=== PATIENT | male | born 1965 | race Two or more races ===

== ENCOUNTER 2025-03-10 20:36 | Inpatient (IN) | payer OTHER ==
[2025-03-10 21:12] VITALS: BMI 25.4
[2025-03-10] MEDS ORDERED: ONDANSETRON *ODT* 4 MG TABLET SL PRN (22:11)
[2025-03-10] MEDS ORDERED: BENZONATATE 200 MG CAPSULE PO PRN (22:11)
[2025-03-10] MEDS ORDERED: guaiFENesin 600 MG TABLET.ER (FP) PO PRN (22:11)
[2025-03-10] MEDS ORDERED: MAGNESIUM HYDROX 2400MG/30ML ORAL SUSPENSION 30 ML CUP PO PRN (22:11)
[2025-03-10] MEDS ORDERED: NICOTINE POLACRILEX 4 MG GUM BUC PRN (22:11)
[2025-03-10] MEDS ORDERED: NALOXONE (NARCAN) HCL 4 MG/0.1 ML SPRAY NS PRN (22:11)
[2025-03-10] MEDS ORDERED: ACETAMINOPHEN 325 MG TABLET (FP) PO PRN (22:11)
[2025-03-10] MEDS ORDERED: BISMUTH SUBSALICYLATE 524 MG/30 ML PO PRN (22:11)
[2025-03-10] MEDS ORDERED: LOPERAMIDE HCL 2 MG CAPSULE PO PRN (22:11)
[2025-03-10] MEDS ORDERED: IBUPROFEN 400 MG TABLET (FP) PO PRN (22:11)
[2025-03-10] MEDS ORDERED: DICYCLOMINE HCL 10 MG CAPSULE PO PRN (22:11)
[2025-03-10] MEDS ORDERED: hydrOXYzine PAMOATE 25 MG CAPSULE (FP) PO PRN (22:11)
[2025-03-10] MEDS ORDERED: chlordiazePOXIDE HCL 25 MG CAPSULE PO PRN (22:11)
[2025-03-10] MEDS ORDERED: BENZOCAINE/MENTHOL (CHLORASEPTIC ) LOZENGE MM PRN (22:11)
[2025-03-10] MEDS ORDERED: POLYETHYLENE GLYCOL (HEALTHYLAX) 3350 17 GM PACKET PO PRN (22:11)
[2025-03-10] MEDS: chlordiazePOXIDE HCL 25 MG CAPSULE PO SCH (23:50)
[2025-03-10] MEDS ORDERED: chlordiazePOXIDE HCL 25 MG CAPSULE ONE (23:51)
[2025-03-11] MEDS: NICOTINE 14 MG/24 HOURS TOPICAL PATCH TD SCH (10:27)
[2025-03-11] MEDS: PRENATAL VITAMINS W/ FOLIC ACID TABLET (FP) PO SCH (10:27)
[2025-03-11] MEDS: MAG HYDROX/AL HYDROX/SIMETH 30 ML UNIT-DOSE CUP PO PRN (10:36)
[2025-03-11 11:00] LABS: HEMATOCRIT 36.9 % (40.1-51.0); HEMOGLOBIN 11.7 g/dL (13.7-17.5); MCHC 31.7 g/dl (32.3-36.5); MEAN CELL VOLUME 90.9 fl (79.0-92.2); MEAN PLT VOLUME 9.5 fl (9.4-12.4); PLATELET COUNT 141 x10^3/uL (163-337); RDW 13.4 % (12.2-16.1)
[2025-03-11 11:05] LABS: CHLORIDE 105 mmol/L (98-107); POTASSIUM 3.5 mmol/L (3.5-5.1); SODIUM 139 mmol/L (136-145)
[2025-03-11 11:09] LABS: ALBUMIN 3.2 g/dl (3.4-5.0); ANION GAP 7 mmol/L (4-13); BLOOD UREA NITROGEN 20.8 mg/dL (7-18); CALCIUM 8.5 mg/dL (8.5-10.1); CO2 27 mmol/L (21-32); GLUCOSE,RANDOM 124 mg/dL (74-106)
[2025-03-11 11:12] LABS: CREATININE 0.9 mg/dL (0.55-1.3); SGOT/AST 25 U/L (15-37); SGPT/ALT 23 U/L (13-61)
[2025-03-11 11:13] LABS: BILIRUBIN,TOTAL 0.4 mg/dL (0.2-1)
[2025-03-11 11:14] LABS: ALK PHOS 108 U/L (45-117); TOT PROT 6.2 g/dl (6.4-8.2)
[2025-03-11] MEDS: THIAMINE 100 MG TABLET PO SCH (22:13)
[2025-03-11] MEDS: MELATONIN 5 MG TABLETS PO SCH (22:13)
[2025-03-12] MEDS: chlordiazePOXIDE HCL 25 MG CAPSULE PO SCH (05:43)
[2025-03-12] MEDS: FLUOCINONIDE 0.05% TOP OINT (60 GM TUBE) TP SCH (22:13)
[2025-03-13] MEDS ORDERED: chlordiazePOXIDE HCL 10 MG CAPSULE PO PRN
[2025-03-13] MEDS: chlordiazePOXIDE HCL 10 MG CAPSULE PO SCH (05:34)
[2025-03-13] MEDS: METHOCARBAMOL 500 MG TABLET PO PRN (17:15)
[2025-03-14] MEDS: chlordiazePOXIDE HCL 10 MG CAPSULE PO SCH (05:35)
[2025-03-15] MEDS: chlordiazePOXIDE HCL 10 MG CAPSULE PO ONE (05:46)
[2025-03-15] MEDS: IBUPROFEN 600 MG TABLET (FP) PO PRN (05:50)
[2025-03-15 08:43] VITALS: BP 128/92; PULSE 72; RESP 18; TEMP 97.4
== END 2025-03-15 09:08 | disposition home or self-care (01) | DRG 775 ==
LOC: YASAS 20:36 → Y3N 23:45
PROVIDERS: ADMIT Family Medicine; ATTEND Family Medicine
PROC: HZ2ZZZZ Detoxification Services for Substance Abuse Treatment (ICD-10-PCS; principal; 2025-03-10)
DX: F10.230 Alcohol dependence with withdrawal, uncomplicated (principal); F12.20 Cannabis dependence, uncomplicated; F17.210 Nicotine dependence, cigarettes, uncomplicated; F19.24 Other psychoactive substance dependence with psychoactive substance-induced mood disorder; F41.9 Anxiety disorder, unspecified; F32.A Depression, unspecified
CPT/HCPCS: 36415; 71046-TC-FY; 80053; 80305; 80307; 85027; 86780; 93005; 93010